=== PATIENT | female | born 1995 | race Caucasian/White ===

== ENCOUNTER 2022-03-08 08:10 | Inpatient (IN) | payer OTHER ==
[~2022-03-08] VITALS: Ht 152.4 cm; Wt 65.0 kg
[~2022-03-08 08:10] MED LIST: AMOX50SU PO; Bactrim Ds Tab1 EACH PO; ONDA4 PO; Pyridium100 MG PO
[2022-03-08 09:28] LABS: Influenza A, PCR NEGATIVE (NEGATIVE); Influenza B, PCR NEGATIVE (NEGATIVE); Resp Syncytial Virus, PCR NEGATIVE (NEGATIVE); SARS-Cov-2 (COVID-19) PCR, MMC NEGATIVE (NEGATIVE)
[2022-03-08 09:47] LABS: BASOPHILS ABSOLUTE AUTO 0.03 K/mm3 (0.00-0.23); BASOPHILS PERCENT AUTO 0 % (0-2); EOSINOPHILS ABSOLUTE AUTO 0.09 K/mm3 (0.00-0.68); EOSINOPHILS PERCENT AUTO 1 % (0-6); Hematocrit 33.9 % (33.0-51.0); Hemoglobin 10.6 g/dL (11.5-16.0); IMMATURE GRAN ABSOLUTE AUTO 0.09 K/mm3 (0.00-0.10); IMMATURE GRAN PERCENT AUTO 1 % (0-1); LYMPHOCYTES ABSOLUTE AUTO 1.44 K/mm3 (0.84-5.20); LYMPHOCYTES PERCENT AUTO 10 % (21-46); MONOCYTES ABSOLUTE AUTO 0.76 K/mm3 (0.16-1.47); MONOCYTES PERCENT AUTO 5 % (4-13); Mean Corpuscular HGB 26.8 pg (26.0-34.0); Mean Corpuscular HGB Conc 31.3 g/dL (31.5-36.5); Mean Corpuscular Volume 86 fL (80-100); NEUTROPHILS PERCENT AUTO 83 % (41-73); Platelet Count 171 K/mm3 (150-400); RDW Coefficient Variation 12.3 % (11.7-14.2); RDW Standard Deviation 38.2 fL (35.1-46.3); Red Blood Cell Count 3.95 M/mm3 (3.80-5.20); White Blood Cell Count 14.11 K/mm3 (4.00-11.30)
[2022-03-08 11:11] LABS: U Amphetamine Screen DETECTED; U Barbituate Screen Not Detected; U Benzodiazapine Screen Not Detected; U Cocaine Screen Not Detected; U Methadone Screen Not Detected; U Methamphetamine Screen DETECTED; U Opiates Screen DETECTED
[2022-03-08 11:12] LABS: U Buprenorphine Screen Not Detected; U Cannabinoids Screen Not Detected; U Oxycodone Screen Not Detected; U Phencyclidine Screen Not Detected; U Propoxyphene Screen Not Detected
--- NOTE | 2022-03-08 12:00 | NUR ---
FLORINDA FULLER AND I WERE PUTTING A CAMPOS CATHETER IN PT AND A SYRINGE FELL OUT FROM UNER THE PT'S LEFT ARM. THE SYRINGE APPEARED TO BE A SMALL INSULIN TYPE OF SYRINGE AND HAD A DARK LIQUID IN IT. THE PATIENT STATED "OH MY GOSH THAT JUST FELL OUT OF MY PURSE, I AM SO EMBARRASSED". LATER WHEN TALKING WITH THE PATIENT I DIRECTLY ASKED HER WHAT WAS INSDIE THE SYRINGE AND SHE REPORTED THAT IT WAS HEROINE.
--- NOTE | 2022-03-08 17:00 | NUR ---
PT GOT IN THE SHOWER AT 1600 AND LOCKED THE DOOR. I FREQUENTLY KNOCKED AND CHECKED ON THE PT TO ASK IF SHE WAS OKAY AND IF I COULD HELP HER. 20 MINUTES INTO THE SHOWER I ASKED HER IF SHE WAS ALMOST DONE AND SHE RESPONDED AND SAID SHE WAS ALMOST DONE "JUST A FEW MORE MINUTES". AT 35 MINUTES INTO THE SHOWER I KNOCKED AGAIN AND ASKED HER FOR A SECOND TIME TO UNLOCK THE DOOR AND THAT IT MADE ME UNCOMFORTABLE THAT IT WAS LOCKED. SHE THEN CAME AND UNLOCKED THE DOOR. I PLACED TAMPER TAPE ON HER IV SITE/DRESSING AROUND 1530 (BEFORE PT WENT OUT TO SMOKE) AND WHEN I CAME INTO THE BATHROOM AT 1635/1640 I FOUND THE DRESSING ON THE FLOOR AND THE TAMPER TAPE REMOVED. I ASKED HER WHY SHE TOOK IT OFF AND SHE STATED "I DIDNT WANT IT TO GET WET". I THEN HELPED HER DRY OFF, GET BACK IN TO BED, AND REMOVED THE IV COMPLETELY.
--- NOTE | 2022-03-08 17:41 | NUR ---
WOUND DRESSING CHANGED ON RLE. NON-ADHESIVE USED WITH A BANDAGE SLEEVE OVER THE TOP. DRY DRESSING- NO OINTMENTS OR CREAMS USED.
--- NOTE | 2022-03-09 04:41 | NUR ---
NB BECOMING TACHYPNIC AND IRRITABLE. RN INTO ROOM TO EXPLAIN NB'S BEHAVIOR. RN EXPLAINED THAT HIS RESTLESSNESS/TACHYPNEA/ AND IRRITABILITY IS MOST LIKELY DUE FROM HIM STARTING TO WITHDRAW FROM THE DRUGS SHE HAS BEEN TAKING THRU THER . THE MOTHER SEEMED VISABALLY UPSET AND STATED "IM SUCH A PIECE OF SHIT.." RN TOLD PT SHE CANNOT CHANGE THE PAST BUT HAVING HER SON MIGHT BE THE REASON SHE WILL CHANGE HER HABITS. RN TOLD PT THAT NB NEEDS TO EAT AND TO CALL RN TO COME BACK IN WHEN NB IS LATCHED TO ASSESS RESP RATE.
--- NOTE | 2022-03-09 14:16 | NUR ---
wound care team here
--- NOTE | 2022-03-09 15:52 | NUR ---
PATIENT LEFT AT 1500 OUT OF ROOM WITH JOANA ONE HOUR LATER SHE IS NOT ON UNIT, FOB IN ROOM WITH BABY LOOKED FOR MOM UNABLE TO LOCATE HER UNSURE IF SHE LEFT THE HOSPITAL GROUNDS
--- NOTE | 2022-03-09 16:16 | NUR ---
patient gone from unit for 1.5 hours just showed up stated she was ntalking to PO officer
--- NOTE | 2022-03-09 18:30 | NUR ---
d/c to boarder instructed about E/S/C to be in room with baby, may take a 15 min from baby and baby go to desk if needed
--- NOTE | 2022-03-11 10:20 | NUR ---
PPFU. PT SCHEDULED FOR PPFU TODAY. PT DID NOT SHOW UP FOR APPOINTMENT, CALLED PHONE NUMBER LISTED ON CERTIFICATE AND PATERNITY PAPERWORK. CALL WENT STRAIGHT TO VOICEMAIL AND MAILBOX WAS FULL.
== END 2022-03-09 18:54 | disposition home or self-care (01) | DRG 807 ==
LOC: OBS 08:10 → BC 08:19 → OBS 08:29 → BC 08:30
PROVIDERS: ADMIT Obstetrics & Gynecology
PROC: 10E0XZZ Delivery of Products of Conception, External Approach (ICD-10-PCS; principal; 2022-03-08)
PROC: 10907ZC Drainage of Amniotic Fluid, Therapeutic from Products of Conception, Via Natural or Artificial Opening (ICD-10-PCS; 2022-03-08)
PROC: 00HU33Z Insertion of Infusion Device into Spinal Canal, Percutaneous Approach (ICD-10-PCS; 2022-03-08)
PROC: 3E0R3BZ Introduction of Anesthetic Agent into Spinal Canal, Percutaneous Approach (ICD-10-PCS; 2022-03-08)
DX: O99.334 Smoking (tobacco) complicating childbirth (principal); Z37.0 Single live birth; O99.324 Drug use complicating childbirth; F17.210 Nicotine dependence, cigarettes, uncomplicated; F15.10 Other stimulant abuse, uncomplicated; F11.10 Opioid abuse, uncomplicated; Z88.8 Allergy status to other drugs, medicaments and biological substances; Z3A.37 37 weeks gestation of pregnancy; Z20.822 Contact with and (suspected) exposure to COVID-19; Z67.40 Type O blood, Rh positive; O77.0 Labor and delivery complicated by meconium in amniotic fluid
CPT/HCPCS: 0241U; 36415; 51702; 85025; 86850; 86900; 86901; A9270; J0290; J2001; J2210; J2590; J3010; J7120

== ENCOUNTER → 2023-07-11 | Outpatient (CLI) | payer OTHER | LOC: LAB 18:18 → LAB SHORT 18:18 | DX: N39.0 Urinary tract infection, site not specified (principal) | CPT/HCPCS: 87077; 87086; 87186 ==

== ENCOUNTER 2025-06-01 06:05 | Inpatient (IN) | payer OTHER ==
[2025-06-01] VITALS (7 sets, daily range): BP systolic 112–136; BP diastolic 67–95
[~2025-06-01] VITALS: Ht 157.5 cm; Wt 65.9 kg
[2025-06-01] MEDS ORDERED: Ondansetron HCl 2 MG / ML 2ML Vial IV PRN (06:35)
[2025-06-01] MEDS ORDERED: ePHEDrine Sulfate 50 MG/ML 1ML Injection XX PRN (06:35)
[2025-06-01] MEDS ORDERED: Carboprost Tromethamine 250 MCG/ML 1ML Amp IM PRN (06:35)
[2025-06-01] MEDS ORDERED: FentaNYL 2mcg/ml-Bup 0.1% Epd 250 ML EPI PRN (06:35)
[2025-06-01] MEDS ORDERED: Methylergonovine Maleate 0.2MG / ML 1ML Amp IM PRN ×2 (06:35→12:15)
[2025-06-01] MEDS ORDERED: Oxytocin 10 Unit / ML Vial IM PRN (06:35)
[2025-06-01] MEDS ORDERED: Tranexamic Acid 100 ML IV PRN (06:35)
[2025-06-01] MEDS ORDERED: OXYTOCIN/RINGER'S LACTATE 500 ML IV PRN (06:35)
[2025-06-01] MEDS ORDERED: SUBOXONE 8 MG-1 EACH SL (06:44)
[2025-06-01 09:35] LABS: BASOPHILS ABSOLUTE AUTO 0.02 K/mm3 (0.00-0.23); BASOPHILS PERCENT AUTO 0 % (0-2); EOSINOPHILS ABSOLUTE AUTO 0.06 K/mm3 (0.00-0.68); EOSINOPHILS PERCENT AUTO 0 % (0-6); Hematocrit 31.4 % (33.0-51.0); Hemoglobin 9.9 g/dL (11.5-16.0); IMMATURE GRAN ABSOLUTE AUTO 0.10 K/mm3 (0.00-0.10); IMMATURE GRAN PERCENT AUTO 1 % (0-1); LYMPHOCYTES ABSOLUTE AUTO 1.19 K/mm3 (0.84-5.20); LYMPHOCYTES PERCENT AUTO 9 % (21-46); MONOCYTES ABSOLUTE AUTO 0.66 K/mm3 (0.16-1.47); MONOCYTES PERCENT AUTO 5 % (4-13); Mean Corpuscular HGB Conc 31.5 g/dL (31.5-36.5); Mean Corpuscular Volume 82 fL (80-100); NEUTROPHILS ABSOLUTE AUTO 11.40 K/mm3 (1.96-9.15); NEUTROPHILS PERCENT AUTO 85 % (41-73); NRBC ABSOLUTE 0.00 K/mm3 (0.00-0.02); NRBC Auto 0.0 /100 WBC (0.0-0.2); Platelet Count 147 K/mm3 (150-400); RDW Coefficient Variation 12.6 % (11.7-14.2); RDW Standard Deviation 38.1 fL (35.1-46.3)
[2025-06-01] MEDS ORDERED: Oxytocin 10 Unit / ML Vial IM ONE (12:10)
[2025-06-01] MEDS ORDERED: OXYTOCIN/RINGER'S LACTATE 500 ML IV SCH (12:15)
[2025-06-01] MEDS ORDERED: Witch Hazel/Glycerin PADS TOP PRN (12:15)
[2025-06-01] MEDS ORDERED: Acetaminophen/Codeine 300-30 mg PO PRN (12:20)
[2025-06-01] MEDS ORDERED: Benzocaine Topical Anesthetic Spray 60GM TOP PRN (12:20)
[2025-06-01] MEDS ORDERED: Ketorolac Tromethamine 30mg Vial IV PRN (12:20)
[2025-06-01] MEDS ORDERED: Methylergonovine Maleate 0.2MG / ML 1ML Amp XX ONE (15:49)
--- NOTE | 2025-06-01 18:32 | NUR ---
06/01/25 1820 [facility] CALLED, SPOKE WITH ANA MARIA, SCREENING ID [id number], GIVEN INFORMATION REGARDING THE PATIENT BEING ON BUPRENORPHINE AND ADMITTING TO ALSO USING FENTANYL AND AMPHETAMINES 2 DAYS AGO.
[2025-06-01 19:00] LABS: Source, Urine Clean Catch
[2025-06-01 19:03] LABS: Bilirubin, Urine Neg (Neg); Color, Urine Amber (P-Yellow); Glucose Qualitative, Urine Neg (Neg); Ketones, Urine Neg (Neg); Leukocyte Esterase, Urine 3+ (Neg); Protein, Urine 3+ (Neg); Specific Gravity, Urine 1.020 (1.003-1.022); Urobilinogen, Urine 1+ (Normal)
[2025-06-01 19:21] LABS: Red Blood Cells, Urine TNTC /hpf (0-2); White Blood Cells, Urine TNTC /hpf (0-5)
--- NOTE | 2025-06-01 21:43 | NUR ---
Pt left unit to smoke at 2114, infant brought to nurses station to be watched by staff while away
--- NOTE | 2025-06-01 22:48 | NUR ---
PT RETURNED FROM SMOKING AT 2200 AND INFANT RETURNED TO ROOM 116 AT THIS TIME
--- NOTE | 2025-06-01 23:42 | NUR ---
PT LEFT OB UNIT TO GO TO [place] @2255 AND RETURNED @ 9163. STAYED IN ROOM 116 W/FOB
[2025-06-02 01:12] VITALS: BP 121/77
[2025-06-02] MEDS ORDERED: Prenatal Vit/FE Fumarate/FA 1 Tab PO SCH (09:00)
[2025-06-02 10:15] VITALS: BP 118/70
[2025-06-02 10:58] LABS: BASOPHILS ABSOLUTE AUTO 0.02 K/mm3 (0.00-0.23); BASOPHILS PERCENT AUTO 0 % (0-2); EOSINOPHILS ABSOLUTE AUTO 0.03 K/mm3 (0.00-0.68); EOSINOPHILS PERCENT AUTO 0 % (0-6); Hematocrit 26.9 % (33.0-51.0); Hemoglobin 8.5 g/dL (11.5-16.0); IMMATURE GRAN ABSOLUTE AUTO 0.06 K/mm3 (0.00-0.10); IMMATURE GRAN PERCENT AUTO 1 % (0-1); LYMPHOCYTES ABSOLUTE AUTO 1.03 K/mm3 (0.84-5.20); LYMPHOCYTES PERCENT AUTO 10 % (21-46); MONOCYTES ABSOLUTE AUTO 0.50 K/mm3 (0.16-1.47); MONOCYTES PERCENT AUTO 5 % (4-13); Mean Corpuscular HGB Conc 31.6 g/dL (31.5-36.5); Mean Corpuscular Volume 83 fL (80-100); NEUTROPHILS ABSOLUTE AUTO 8.89 K/mm3 (1.96-9.15); NEUTROPHILS PERCENT AUTO 84 % (41-73); NRBC ABSOLUTE 0.00 K/mm3 (0.00-0.02); NRBC Auto 0.0 /100 WBC (0.0-0.2); Platelet Count 138 K/mm3 (150-400); RDW Coefficient Variation 12.6 % (11.7-14.2); RDW Standard Deviation 38.4 fL (35.1-46.3)
--- NOTE | 2025-06-02 12:45 | NUR ---
PATIENT LEFT UNIT AT 0810 AND RETURNED TO UNIT AT 0930. BUBBA FROM [facility] CALLED FOR UPDATE AT 1008. BUBBA CAME TO UNIT AT 1210 AND IS CURENTLY STILL IN ROOM WITH PATIENT, FOB AND BABY.
--- NOTE | 2025-06-02 13:55 | NUR ---
ROUNDED ON PATIENT. PATIENT NOT IN ROOM. FOB TAKING CARE OF BABY. UNABEL TO DO AFTERNOON VITALS AT THIS TIME.
[2025-06-02 18:01] VITALS: BP 125/86
--- NOTE | 2025-06-02 18:02 | NUR ---
RN NOTICED CIGARETTES ON PATIENT'S BEDSIDE TABLE DURING VS ASSESSMENT. RN EDUCATED THAT [facility] IS A NICOTINE AND IGNITION SOURCE FREE ENVIRONMENT. ASKED PT TO REMOVE CIGARETTES AND ANY IGNITION SOURCES FROM ROOM. PT AGREED.
[2025-06-03 00:03] VITALS: BP 124/77
[2025-06-03 06:13] VITALS: BP 118/72
--- NOTE | 2025-06-03 08:55 | NUR ---
RN DISCUSSED RECEIVING UTOX FROM MOM. SHE IS REFUSING TO LEAVE A SAMPLE AT THIS TIME. SHE HAS BEEN REMINDED MULTIPLE TIMES, HAS A HAT IN TOILET, AND STILL NOT LEAVING ANY URINE FOR SAMPLE.
[2025-06-03 09:10] VITALS: BP 137/62
[2025-06-03] MEDS ORDERED: IBUP800 PO (09:19)
[2025-06-03] MEDS ORDERED: PRENATAL TABLE1 EAC2 PO (09:19)
[2025-06-03] MEDS ORDERED: CEPH500 PO (09:19)
== END 2025-06-03 11:30 | disposition home or self-care (01) | DRG 806 ==
LOC: OBS 06:05 → BC 06:11 → OBS 06:33 → BC 06:36
PROVIDERS: Obstetrics & Gynecology; ADMIT Registered Nurse Community Health
PROC: 10E0XZZ Delivery of Products of Conception, External Approach (ICD-10-PCS; principal; 2025-06-01)
PROC: 3E0R3BZ Introduction of Anesthetic Agent into Spinal Canal, Percutaneous Approach (ICD-10-PCS; 2025-06-01)
PROC: 00HU33Z Insertion of Infusion Device into Spinal Canal, Percutaneous Approach (ICD-10-PCS; 2025-06-01)
DX: O48.0 Post-term pregnancy (principal); O99.324 Drug use complicating childbirth; Z37.0 Single live birth; F11.90 Opioid use, unspecified, uncomplicated; F15.90 Other stimulant use, unspecified, uncomplicated; Z3A.40 40 weeks gestation of pregnancy
CPT/HCPCS: 36415; 51702; 81001; 84443; 85025; 86592; 86850; 86900; 86901; 87077; 87086; 87186; 99214; A9270; J1885; J2210; J2590; J7120

== ENCOUNTER 2025-08-01 21:32 | Emergency (ER) | payer OTHER ==
[~2025-08-01] VITALS: Ht 157.5 cm; Wt 54.4 kg
[~2025-08-01 21:32] MED LIST changes: +CEPH500 PO; +IBUP800 PO; +PRENATAL TABLE1 EAC2 PO; +SUBOXONE 8 MG-1 EACH SL
[2025-08-01] MEDS ORDERED: Lidocaine 2% Jelly Uro-Jet TOP ONE (22:15)
[2025-08-01] MEDS ORDERED: Lidocaine HCl 4% Cream 5 GM TOP ONE (22:20)
[2025-08-01 22:33] VITALS: BP 123/89
== END 2025-08-01 22:33 | disposition home or self-care (01) ==
LOC: ER 21:32
DX: T59.3X3A Toxic effect of lacrimogenic gas, assault, initial encounter (principal); F17.200 Nicotine dependence, unspecified, uncomplicated; Z79.2 Long term (current) use of antibiotics; Z79.899 Other long term (current) drug therapy; X96.8XXA Assault by other specified explosive, initial encounter
CPT/HCPCS: 99284; A9270